=== PATIENT | female | born 1990 | race Caucasian/White ===

== ENCOUNTER 2018-12-25 03:32 | Emergency (ER) | payer MEDICAID, OTHER ==
[~2018-12-25] VITALS: Ht 162.6 cm; Wt 69.0 kg
[2018-12-25] MEDS ORDERED: METHYLPREDNISOLONE SOD SUCC 125 MG/2 ML VIAL IV STA (03:44)
[2018-12-25] MEDS ORDERED: IPRATROPIUM BROMIDE (0.02%) 0.5MG/2.5ML NEB HHN STA (03:44)
[2018-12-25] MEDS ORDERED: ALBUTEROL (0.083%) 2.5MG/3ML NEB HHN STA (03:44)
[2018-12-25] MEDS ORDERED: MAGNESIUM 2 G PREMIX 50 ML IV ONE (03:45)
[2018-12-25] MEDS ORDERED: PREDNISONE 20MG TABLET PO ONE ×2 (05:45→06:00)
[2018-12-25 06:00] VITALS: BP 106/65
== END 2018-12-25 06:18 | disposition home or self-care (01) ==
LOC: ER 03:32
DX: J45.901 Unspecified asthma with (acute) exacerbation (principal)
CPT/HCPCS: 94644; 96365; 96375; 99285; J2930; J3475; J7611; Z7610

== ENCOUNTER 2022-03-18 22:43 | Emergency (ER) | payer MEDICAID, OTHER ==
[~2022-03-18] VITALS: Ht 154.9 cm; Wt 67.7 kg
[2022-03-19] MEDS ORDERED: IPRATROPIUM BROMIDE (0.02%) 0.5MG/2.5ML NEB HHN STA (02:27)
[2022-03-19] MEDS ORDERED: PREDNISONE 20MG TABLET PO STA (02:27)
[2022-03-19] MEDS ORDERED: ALBUTEROL (0.083%) 2.5MG/3ML NEB HHN STA (02:27)
[2022-03-19 04:25] VITALS: BP 119/85
[2022-03-19] MEDS ORDERED: ALBU6.7H3 INH (04:31)
[2022-03-19] MEDS ORDERED: P20 MT (04:31)
== END 2022-03-19 04:45 | disposition home or self-care (01) ==
LOC: ER 22:43
DX: J45.909 Unspecified asthma, uncomplicated (principal); B34.9 Viral infection, unspecified
CPT/HCPCS: 94640; 99283; J7512; Z7610